=== PATIENT | female | born 1960 | race Caucasian/White ===

== ENCOUNTER 2023-09-09 16:47 | Observation (INO) | payer OTHER, SELFPAY ==
[2023-09-09] VITALS (11 sets, daily range): BP systolic 134–205; BP diastolic 79–101; BMI 30.8; BMI 29.6
--- NOTE | 2023-09-09 12:12 | EDRN ---
Ronald SCOTT in room w/ pt.
[2023-09-09 12:21] LABS: % Basophils 0.6 % (0-2); % Eosinophils 1.3 % (0-6); % Immature Granulocytes 0.2 % (0-0.5); % Lymphocytes 15.7 % (20.5-51.1); % Monocytes 4.9 % (1.7-9.3); % Neutrophils 77.3 % (42.2-75.2); Absolute Eosinophils 0.1 10^3/uL (0-0.7); Absolute Monocytes 0.3 10^3/uL (0.1-0.6); Absolute Neutrophils 4.9 10^3/uL (1.4-6.5); Hematocrit 40.1 % (37.0-47.0); Hemoglobin 13.5 g/dL (12.0-16.0); Mean Corp Hgb Conc. 33.7 g/dL (33.0-37.0); Mean Corpuscular Hgb 29.8 pg (27.0-31.0); Mean Corpuscular Volume 88.5 fL (81.0-99.0); Mean Platelet Volume 9.1 fL (7.4-10.4); Nucleated Red Blood Cells % 0 %; Platelet Count 231 10^3/uL (130-400); Red Blood Cell Count 4.53 10^6/uL (4.20-5.40); Red Cell Dist. Width 12.5 % (11.5-14.5); White Blood Cell Count 6.4 10^3/uL (4.8-10.8)
[2023-09-09] MEDS: MORPHINE SULFATE 2 MG IV ×2 (12:22→14:24)
--- NOTE | 2023-09-09 12:35 | ED.GENMED ---
History of Present Illness
<Rogers Whittington Jr., PA-C - Last Filed: 09/10/23 09:27>
General
Chief Complaint: Chest Pain
Source: patient
Exam Limitations: none
Time Seen by Provider: 09/09/23 12:03
Nursing documentation reviewed up to this point in time: agreed with
Travel History
Have you had any contact with someone who has COVID-19?: No
Do you have any symptoms of coronavirus? Fever > 100 degrees, chills, cough, shortness of breath, sore throat, loss of taste or smell, muscle aches, or headache?: No
History of Present Illness
History of Present Illness:
62-year-old female with past ministry of hypertension hyperlipidemia GERD presenting to the emergency department today with concerns of midsternal chest pain rating directly to her back started this morning worsened throughout the day today blood
pressure very elevated at home. Took 2 aspirin without relief. Denies similar symptoms in the past. Has had some ongoing right upper quadrant pain and she believes she does gallstones but denies this specifically worsening denies ever having
symptoms like this in the past. Patient is not a smoker denies any history of blood clots recent trauma surgery immobilization or estrogen product use
Past History
<Rogers Whittington Jr., PA-C - Last Filed: 09/10/23 09:27>
Past History
ED Past Medical History: GERD, HTN and Psychiatric
Social History
Tobacco: Non-smoker
Alcohol: Occasional
Drug: None
Personal:
Living: with family
Review of Systems
<Rogers Whittington Jr., PA-C - Last Filed: 09/10/23 09:27>
Review of Systems
Allergies reviewed?: Yes
All Other Systems: ROS reviewed and negative except as documented in HPI and ROS
Phy Exam
<Rogers Whittington Jr., PA-C - Last Filed: 09/10/23 09:27>
Physical Exam
Physical Exam:
GENERAL: Alert , in no apparent distress
EYE: pupils equal and reactive
NECK: Supple, no significant adenopathy.
ENT: o/p clr, mmm.
CARDIAC: Regular rate and rhythm .
LUNGS: Clear breath sounds bilaterally, no acute respiratory distress, no wheezes/rales/rhonchi
ABDOMEN: Mild pain to the upper abdomen to palpation.
NEUROLOGICAL: Alert and oriented, no focal neuro deficits
SKIN: Warm and dry, skin intact.
MUSCULOSKELETAL: No edema, well perfused.
PSYCH: Normal and appropriate interaction.
Scores
<Ge Phan PA-C - Last Filed: 09/09/23 16:43>
Heart Score for Chest Pain Patients
STEMI patient?: Not applicable
Course
<Rogers Whittington Jr., PA-C - Last Filed: 09/10/23 09:27>
Orders/Labs/Results
Orders:
Orders
09/09/23 11:44
EKG [Electrocardiogram (*1)] Urgent
Reason for Study: Chest Pain
EKG- Treatment ONCE
09/09/23 12:01
Cardiac Monitoring- Treatment ONCE
IV Insert/Care/Rem.- Treatment PRN
09/09/23 12:07
Complete Blood Count/With Diff Urgent
Comprehensive Metabolic Panel Urgent
Lipase Urgent
Troponin I Urgent
09/09/23 12:19
CT Chest/abd/pelvis Angio W/wo Urgent
Comment:
Reason For Exam: chest pain/abd pain radiating to the back
Morphine Sulfate 2 mg IV NOW STA
09/09/23 12:20
Morphine Sulfate 2 mg .ROUTE .STK-MED ONE
09/09/23 13:54
Morphine Sulfate 2 mg IV NOW STA
09/09/23 14:22
EKG [Electrocardiogram (*1)] Urgent
Reason for Study: Chest Pain
EKG- Treatment ONCE
09/09/23 14:33
Troponin I Urgent
09/09/23 14:35
Famotidine [Pepcid] 20 mg IV NOW STA
Ketorolac [Toradol] 15 mg IV NOW STA
09/09/23 Dinner
Clear Liquid
At Your Request: Full Participation
09/09/23 16:16
Admit Patient As Directed
Co-Sign Provider:
Level of Care: Observation services
Assign to:: Medical/Surgical
Physician / Group: Dr. Potter/General surgery
Diagnosis: Abdominal pain
Code Status As Directed
Resuscitation Status: Full Code
Acetaminophen [Tylenol] 650 mg PO Q4HPRN PRN
HYDROmorphone [Dilaudid] 1 mg IV Q4HPRN PRN
Ketorolac [Toradol] 10 mg IV Q6HPRN PRN
Ondansetron Injectable [Zofran] 4 mg IV Q6HPRN PRN
Activity As Directed
Activity Level: Out of Bed-Early Mobility
Intake/ Output As Directed
Frequency: Per unit guidelines
Vital Signs As Directed
Frequency: Per unit guidelines
09/09/23 16:17
DX Deep Vein Thrombosis Video Routine
09/09/23 16:21
Calcium Carbonate Chewable [Tums] 2 tablet PO Q4HPRN PRN
09/09/23 16:30
Normosol (Mult Electrolytes) [Normosol-R] 1,000 ml IV 80 mls/hr
09/09/23 18:00
Enoxaparin Sodium [Lovenox] 40 mg SC QPM
09/09/23 20:00
Famotidine [Pepcid] 20 mg PO BID
09/09/23 22:00
Cetirizine HCl [Zyrtec] 10 mg PO HS
09/10/23 04:30
Complete Blood Count/No Diff IN AM
Comprehensive Metabolic Panel IN AM
09/10/23 Breakfast
NPO
Allow oral meds: Yes
Allow clear liquids: Sips of Clears
Hida Scan [NM Hepatobiliary (hida)] IN AM
Comment:
Reason For Exam: RUQ pain
09/10/23 08:00
Hydrochlorothiazide [Oretic] 25 mg PO DAILY
09/10/23 09:00
US Abdomen Complete/Upper Routine
Comment: npo after midnight
Reason For Exam: RUQ pain, h/o cholelithiasis
Abnormal Lab Results
09/09/23
12:07
Absolute Lymphs (auto) 1.0 L 10^3/uL
(1.2-3.4)
Neutrophils % 77.3 H %
(42.2-75.2)
Lymphocytes % 15.7 L %
(20.5-51.1)
Glucose 112 H mg/dl
(70-99)
09/09/23 12:07
09/09/23 12:07
Vital Signs
Initial and Last Documented VS:
Initial Vital Signs
Temp Pulse Resp BP Pulse Ox
98.3 F 71 18 205/101 98
09/09/23 11:43 09/09/23 11:43 09/09/23 11:43 09/09/23 11:43 09/09/23 11:43
Last Documented Vital Signs
Temp Pulse Resp BP Pulse Ox
98.6 F 66 18 122/70 96
09/10/23 07:37 09/10/23 07:37 09/10/23 07:37 09/10/23 07:37 09/10/23 09:22
<Ge Phan PA-C - Last Filed: 09/09/23 16:43>
Orders/Labs/Results
Orders:
Orders
09/09/23 11:44
EKG [Electrocardiogram (*1)] Urgent
Reason for Study: Chest Pain
EKG- Treatment ONCE
09/09/23 12:01
Cardiac Monitoring- Treatment ONCE
IV Insert/Care/Rem.- Treatment PRN
09/09/23 12:07
Complete Blood Count/With Diff Urgent
Comprehensive Metabolic Panel Urgent
Lipase Urgent
Troponin I Urgent
09/09/23 12:19
CT Chest/abd/pelvis Angio W/wo Urgent
Comment:
Reason For Exam: chest pain/abd pain radiating to the back
Morphine Sulfate 2 mg IV NOW STA
09/09/23 12:20
Morphine Sulfate 2 mg .ROUTE .STK-MED ONE
09/09/23 13:54
Morphine Sulfate 2 mg IV NOW STA
09/09/23 14:22
EKG [Electrocardiogram (*1)] Urgent
Reason for Study: Chest Pain
EKG- Treatment ONCE
09/09/23 14:33
Troponin I Urgent
09/09/23 14:35
Famotidine [Pepcid] 20 mg IV NOW STA
Ketorolac [Toradol] 15 mg IV NOW STA
09/09/23 Dinner
Clear Liquid
At Your Request: Full Participation
09/09/23 16:16
Admit Patient As Directed
Co-Sign Provider:
Level of Care: Observation services
Assign to:: Medical/Surgical
Physician / Group: Dr. Potter/General surgery
Diagnosis: Abdominal pain
Code Status As Directed
Resuscitation Status: Full Code
Acetaminophen [Tylenol] 650 mg PO Q4HPRN PRN
HYDROmorphone [Dilaudid] 1 mg IV Q4HPRN PRN
Ketorolac [Toradol] 10 mg IV Q6HPRN PRN
Ondansetron Injectable [Zofran] 4 mg IV Q6HPRN PRN
Activity As Directed
Activity Level: Out of Bed-Early Mobility
Intake/ Output As Directed
Frequency: Per unit guidelines
Vital Signs As Directed
Frequency: Per unit guidelines
09/09/23 16:17
DX Deep Vein Thrombosis Video Routine
09/09/23 16:21
Calcium Carbonate Chewable [Tums] 2 tablet PO Q4HPRN PRN
09/09/23 16:30
Normosol (Mult Electrolytes) [Normosol-R] 1,000 ml IV 80 mls/hr
09/09/23 18:00
Enoxaparin Sodium [Lovenox] 40 mg SC QPM
09/09/23 20:00
Famotidine [Pepcid] 20 mg PO BID
09/09/23 22:00
Cetirizine HCl [Zyrtec] 10 mg PO HS
09/10/23 04:30
Complete Blood Count/No Diff IN AM
Comprehensive Metabolic Panel IN AM
09/10/23 Breakfast
NPO
Allow oral meds: Yes
Allow clear liquids: Sips of Clears
Hida Scan [NM Hepatobiliary (hida)] IN AM
Comment:
Reason For Exam: RUQ pain
09/10/23 08:00
Hydrochlorothiazide [Oretic] 25 mg PO DAILY
09/10/23 09:00
US Abdomen Complete/Upper Routine
Comment: npo after midnight
Reason For Exam: RUQ pain, h/o cholelithiasis
Abnormal Lab Results
09/09/23
12:07
Absolute Lymphs (auto) 1.0 L 10^3/uL
(1.2-3.4)
Neutrophils % 77.3 H %
(42.2-75.2)
Lymphocytes % 15.7 L %
(20.5-51.1)
Glucose 112 H mg/dl
(70-99)
09/09/23 12:07
09/09/23 12:07
Vital Signs
Initial and Last Documented VS:
Initial Vital Signs
Temp Pulse Resp BP Pulse Ox
98.3 F 71 18 205/101 98
09/09/23 11:43 09/09/23 11:43 09/09/23 11:43 09/09/23 11:43 09/09/23 11:43
Last Documented Vital Signs
Temp Pulse Resp BP Pulse Ox
98.6 F 66 18 122/70 96
09/10/23 07:37 09/10/23 07:37 09/10/23 07:37 09/10/23 07:37 09/10/23 09:22
<Rogers Whittington Jr., PA-C - Last Filed: 09/10/23 09:27>
MDM/Problems Addressed
MDM/Problems Addressed:
62-year-old female presenting to the emergency department today with concerns of midsternal chest pain rating to the mid back between her shoulder blades described as severe and worsening over the past few hours also has had some lightheadedness
some nausea no vomiting no significant shortness of breath no history of similar symptoms. Initial blood pressure 205/101 other vital signs are normal. Labs unremarkable. EKG nonischemic normal heart rate. Considered the patient's rating
symptoms to her shoulder blades from her mid chest and also some discomfort coming from the abdomen there was initial concern for potential dissection with significantly elevated blood pressure. CT dissection was performed without evidence of
emergent pathology troponin was negative x 2 EKG unchanged cardiac origin or vascular origin seems very unlikely at this point no evidence of pulmonary pathology as well normal lipase normal liver function test unlikely be biliary pathology or
pancreatitis. Patient was found to have a large hiatal hernia. There was concern this could be causing patient's significant symptoms. Patient with ongoing symptoms despite 2 doses of morphine and Toradol. Case discussed with general surgery who
will come see the patient here.
<Ge Phan PA-C - Last Filed: 09/09/23 16:43>
*Critical Care Note
Total Time (30-74mins, 75-104mins- exclusive of procedures): Not Applicable
<Ge Phan PA-C - Last Filed: 09/09/23 16:43>
Update Note
Update Note:
Care assumed from Ed HECTOR Whittington at shift change 1600. Awaiting gen surg consultation
Surgery saw pt and will admit for further workup of possible cholecystitis
ED Attending Note
<Rogers Whittington Jr., PA-C - Last Filed: 09/10/23 09:27>
-
Portions of this chart may have been created with voice recognition software.� Occasional wrong word or��sound alike� substitutions may have occurred due to the inherent limitations of voice recognition software.
Discharge Plan
Departure
Patient Disposition: Admit
Date of Disposition: 09/09/23
Time of Disposition: 16:41
Presentation/result/management discussed w/ accepting MD/DO: General Surgery
Discharge Problem:
Right upper quadrant abdominal pain
Interventions
Interventions:
*Risk Screen - Suicide Last Done: 09/09/23 11:43
*General Assessment Last Done: 09/09/23 11:43
*Neglect/Abuse Screening Last Done: 09/09/23 11:43
ED- Fall Risk Assessment Last Done: 09/09/23 11:58
*ED COVID-19 Vaccine History Last Done: 09/09/23 18:47
*Nursing Disposition Last Done: 09/09/23 17:18
ED- Cardiac Assessment Last Done: 09/09/23 11:58
ED- Neurological Assessment Last Done: 09/09/23 11:58
ED- Pulmonary Assessment Last Done: 09/09/23 11:58
Discharge Date and Time
Discharge Date/Time: 09/09/23 17:18
[2023-09-09 12:36] LABS: ALT (SGPT) 13 U/L (0-35); AST (SGOT) 22 U/L (14-36); Albumin 4.1 g/dl (3.5-5.0); Alkaline Phosphatase 78 U/L (38-126); Blood Urea Nitrogen 15 mg/dl (7-17); Calcium 9.7 mg/dl (8.4-10.2); Carbon Dioxide 30 mmol/L (22-30); Chloride 101 mmol/L (98-107); Estimated Creatinine Clearance 65 ml/min; Glucose 112 mg/dl (70-99); Sodium 137 mmol/L (135-145); Total Bilirubin 0.3 mg/dl (0.2-1.3); Total Protein 6.8 g/dl (6.3-8.2); eGFR > 60.00
[2023-09-09 12:48] LABS: Troponin I < 0.012 ng/ml
[2023-09-09 13:06] LABS: Lipase 223 U/L (23-300)
--- NOTE | 2023-09-09 14:26 | EDRN ---
Ronald SCOTT in room w /pt at this time.
[2023-09-09] MEDS: TORADOL 15 MG IV (14:49)
[2023-09-09] MEDS: PEPCID 20 MG IV (14:49)
[2023-09-09 15:37] LABS: Troponin I < 0.012 ng/ml
--- NOTE | 2023-09-09 16:03 | EDRN ---
Dr. Pastor in to see pt for general surgery and informed this RN that pt will be admitted to hospital.
--- NOTE | 2023-09-09 16:04 | HPS.HSE ---
Addendum entered and electronically signed by Aditya Potter MD 09/09/23 17:39:
I saw and examined the patient independently.
The Hog Handler's note was reviewed and I agree with the note, assessment and plan except where noted below.
Comment: This is a 62-year-old female who presents today with chest pain and nausea in the setting of a known hiatal hernia and gallstones. Her pain is not particularly postprandial and is different from her typical GERD. She underwent 2 EKGs as
well as troponin levels which were all normal ruling out ACS. She underwent CT chest abdomen pelvis which ruled out dissection however it did note an enlarging hiatal hernia and on the my review a slightly distended gallbladder. The patient denies
Fever, Chest Pain, Shortness Of Breath, Vomiting, changes in urinary and bowel habits, dysphagia, unintentional weight loss, jaundice, icterus, acolic stools.
Last upper endoscopy: Never
On exam she is acutely tender to palpation in the right upper quadrant and her main presenting complaints seems more consistent with gallbladder etiology than her hiatal hernia.
Admit to general surgery for workup of chest and abdominal pain.
N.p.o., IV fluids
Hold on antibiotics for now.
Ultrasound of the right upper quadrant. If positive will plan for laparoscopic cholecystectomy tomorrow. If negative will discuss further workup however if her pain is resolved will likely be able to advance diet and discharge home with outpatient
workup of her hiatal hernia.
Original Note:
Family Physician
-
Family Physician: NOT KNOW UNKNOWN - PT DOES
Chief Complaint
-
Chest and RUQ pain
History of Present Illness
Ms Lizama is a 62 yo female with history of cholelithiasis, D&C, dx lap for endometriosis and HTN who presents for RUQ pain and chest discomfort which she noted this morning upon awakening. She notes indigestion frequently which she described as
burning in her esophagus with heavy meals and spicy foods and often has a nagging sensation in her RUQ. She has been eating a low fat diet to manage these symptoms as well as taking Jarett's as needed. This morning, she took aspirin for pain relief,
but with no relief causing her to present for evaluation. She denies nausea or vomiting. She denies fevers or chills. She denies diarrhea or constipation. On exam, she is tender to the RUQ with guarding.
Medical History
Past Medical History
Past Medical History: Reports HTN
Past Surgical History: Reports Gynocological (D&C, Dx lap for endometriosis)
Social History
Tobacco: Non-smoker
Alcohol: Occasional (glass of wine every 1-2 months)
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
Family History
Family History: Not pertinent
Allergies / Home Medications
Allergies reflects when Allergies were last updated in [facility].
Home Medications with original date entered in [facility]
Allergy/Medication List:
Patient Allergies
Allergy/AdvReac Type Severity Reaction Status Date / Time
Penicillins Allergy Rash Verified 09/09/23 11:43
sulfamethoxazole Allergy Rash Verified 09/09/23 11:43
[From Bactrim]
trimethoprim [From Bactrim] Allergy Rash Verified 09/09/23 11:43
�Medication �Instructions �Recorded �Confirmed �Type
acetaminophen 500 mg tablet 1,000 mg PO BIDPRN PRN mild pain 09/09/23 09/09/23 History
(Tylenol Extra Strength)
aspirin 325 mg tablet 650 mg PO DAILYPRN PRN heart issue 09/09/23 09/09/23 History
cetirizine 10 mg tablet (Zyrtec) 10 mg PO HS 09/09/23 09/09/23 History
hydrochlorothiazide 25 mg tablet 25 mg PO DAILY 09/09/23 09/09/23 History
Review of Systems
-
History Source: Patient
A 12 point ROS was completed and negative except as noted: Yes
Physical Exam
Vital Signs
Vital Signs
Temp Pulse Resp BP Pulse Ox
98.3 F 70 16 175/82 97
09/09/23 11:43 09/09/23 15:15 09/09/23 15:15 09/09/23 14:54 09/09/23 15:15
Physical Exam
General: Well Developed and Well Nourished
HEENT: NormoCephalic and Moist mucous membranes
GI: Soft and Tender (RUQ)
Skin: Warm and Dry
Neuro: Awake, Alert and AO x 3
Psych: Calm
Laboratory Results
-
09/09/23 12:07
09/09/23 12:07
Laboratory Results
Total Bilirubin 0.3 mg/dl (0.2-1.3) 09/09/23 12:07
AST 22 U/L (14-36) 09/09/23 12:07
ALT 13 U/L (0-35) 09/09/23 12:07
Alkaline Phosphatase 78 U/L (38-126) 09/09/23 12:07
Troponin I < 0.012 ng/ml 09/09/23 14:33
Lipase 223 U/L (23-300) 09/09/23 12:07
Data Reviewed
-
CT Scan: Image Personally Visualized and interpreted, Report Reviewed by me, Discussed with Physician and Discussed with Patient
Lab Data: Labs Reviewed by me, Discussed with Physician and Discussed with Patient
Old Records: Reviewed
Impression/Plan
-
IMPRESSION:
62 yo female with history of D&C, dx lap for endometriosis and HTN who presents for RUQ pain and chest discomfort which she noted this morning upon awakening with history of recurrent RUQ discomfort and known cholelithiasis. She has RUQ tenderness
with guarding on exam. Chest discomfort relieved with analgesics but RUQ pain persists. Denies n/v or fever/chills. Cardiac work up in the ED negative. CT imaging reviewed with hiatal hernia present without gastric volvulus. The gallbladder does
appear slightly distended but there is no sign of surrounding inflammation/acute cholecystitis. Labs are unremarkable. Suspect possible chronic cholecystitis with hiatal hernia contributing to her symptoms. Given continued tenderness on exam, will
place in observation for continued testing.
PLAN:
ABD US this evening
HIDA in AM
Clears tonight and NPO after MN for testing/?OR
Multimodal analgesics/antiemetics
Continue home meds
Labs in AM
Surgical consideration for lap fortunato either this presentation or scheduled as an outpatient pending testing and patient course
[2023-09-09] MEDS: DILAUDID 1 MG IV ×2 (16:58→22:28)
[2023-09-09] MEDS: ZOFRAN 4 MG IV (17:52)
[2023-09-09] MEDS: LOVENOX 40 MG SC (17:55)
[2023-09-09] MEDS: NORMOSOL-R 1000 IV (17:57)
[2023-09-09] MEDS: PEPCID 20 MG PO (20:30)
[2023-09-09] MEDS: ZYRTEC 10 MG PO (20:31)
[2023-09-09] MEDS: TORADOL 10 MG IV (20:32)
[2023-09-09] MEDS: TUMS 2 TABLET PO (22:28)
--- NOTE | 2023-09-09 23:55 | PTCARENOTE ---
pt washed up, 1st set of chg wipes completed. pt npo at midnight for US and OR in am.
[2023-09-10 05:18] LABS: Hematocrit 36.2 % (37.0-47.0); Hemoglobin 12.2 g/dL (12.0-16.0); Mean Corp Hgb Conc. 33.7 g/dL (33.0-37.0); Mean Corpuscular Hgb 29.6 pg (27.0-31.0); Mean Corpuscular Volume 87.9 fL (81.0-99.0); Mean Platelet Volume 9.5 fL (7.4-10.4); Platelet Count 216 10^3/uL (130-400); Red Blood Cell Count 4.12 10^6/uL (4.20-5.40); Red Cell Dist. Width 12.7 % (11.5-14.5); White Blood Cell Count 7.9 10^3/uL (4.8-10.8)
[2023-09-10] MEDS: NORMOSOL-R 1000 IV ×2 (05:29→17:00)
[2023-09-10] MEDS: ZOFRAN 4 MG IV ×2 (05:33→11:44)
[2023-09-10] MEDS: TORADOL 10 MG IV ×2 (05:33→11:44)
[2023-09-10 05:49] LABS: ALT (SGPT) 13 U/L (0-35); AST (SGOT) 20 U/L (14-36); Albumin 3.7 g/dl (3.5-5.0); Alkaline Phosphatase 69 U/L (38-126); Blood Urea Nitrogen 13 mg/dl (7-17); Calcium 9.3 mg/dl (8.4-10.2); Carbon Dioxide 32 mmol/L (22-30); Chloride 99 mmol/L (98-107); Estimated Creatinine Clearance 107 ml/min; Glucose 113 mg/dl (70-99); Potassium 4.1 mmol/L (3.5-5.1); Sodium 133 mmol/L (135-145); Total Bilirubin 0.5 mg/dl (0.2-1.3); Total Protein 6.1 g/dl (6.3-8.2); eGFR > 60.00
[2023-09-10] MEDS: PEPCID 20 MG PO (07:25)
[2023-09-10] MEDS: ORETIC 25 MG PO (07:25)
[2023-09-10 07:37] VITALS: BP 122/70
--- NOTE | 2023-09-10 09:54 | W.PN.GS2 ---
Addendum entered and electronically signed by Aditya Potter MD 09/10/23 11:48:
Hida negative. Will advance diet and plan to discharge later today if she is tolerating food with plan for outpatient EGD and hiatal hernia workup.
Original Note:
Today's Communication / Plan
-
Ultrasound, possible HIDA scan
Assessment / Plan
-
This is a 62-year-old female with a history of gallstones who presents with chest pain as well as a right upper quadrant pain that is not postprandial. ACS ruled out. CT scan notable for the moderate hiatal hernia as well as a slightly distended
gallbladder. Tender to palpation in the right upper quadrant.
Ultrasound this morning if positive stones and concerning for cholecystitis will plan for or today, if positive stones but no other stigmata of cholecystitis will obtain a HIDA scan. If all of this is negative then we will plan to feed and
discharge home if she is tolerating her diet with plan for outpatient EGD and workup of her hiatal hernia.
All questions answered, patient agreeable to plan.
Time Spent
Total Time Spent with Patient (in minutes): 20
Subjective Data
-
Date of Service: September 10, 2023
Interval Events:
No acute events overnight. Slept well. Pain Controlled. Denies Nausea/Vomiting after tolerating clear liquids last night. She states that her chest pain is more or less gone but is continue to have right upper quadrant and epigastric pain.
Ultrasound was not performed last night.
Objective Data
-
Intake and Output
09/09/23 09/10/23 09/11/23
06:59 06:59 06:59
Intake Total 1919
Balance 1919
Intake:
Oral fluids 880 / 880
IV fluids (Total) 1040 / 1040
Other:
Number of approximated MODERATE 1
amounts of urine
Number of approximated LARGE 3
amounts of urine
Vital Signs
Temp Pulse Resp BP Pulse Ox
98.6 F 66 18 122/70 96
09/10/23 07:37 09/10/23 07:37 09/10/23 07:37 09/10/23 07:37 09/10/23 09:22
Lab Results
09/10/23 04:30
09/10/23 04:30
Calcium 9.3 mg/dl (8.4-10.2) 09/10/23 04:30
Total Bilirubin 0.5 mg/dl (0.2-1.3) 09/10/23 04:30
AST 20 U/L (14-36) 09/10/23 04:30
ALT 13 U/L (0-35) 09/10/23 04:30
Alkaline Phosphatase 69 U/L (38-126) 09/10/23 04:30
Total Protein 6.1 g/dl (6.3-8.2) L 09/10/23 04:30
Albumin 3.7 g/dl (3.5-5.0) 09/10/23 04:30
Physical Exam
-
GENERAL/NEURO: Awake, Alert, no distress
CHEST: Unlabored breathing on RA
ABDOMEN: Soft, nondistended,'s atmospheric drier tender to palpation in the right upper quadrant.
[2023-09-10] MEDS: TYLENOL 650 MG PO ×2 (10:17→14:21)
[2023-09-10 15:21] VITALS: BP 129/69
[2023-09-10] MEDS: LOVENOX 40 MG SC (17:01)
[2023-09-10] MEDS: DILAUDID 1 MG IV ×2 (18:12→22:27)
[2023-09-10] MEDS: PROTONIX 40 MG PO (20:50)
[2023-09-10] MEDS: ZYRTEC 10 MG PO (22:27)
[2023-09-10 23:09] VITALS: BP 145/82
[2023-09-11 07:15] VITALS: BP 144/81
[2023-09-11] MEDS: ORETIC 25 MG PO (07:52)
[2023-09-11] MEDS: PROTONIX 40 MG PO (07:52)
--- NOTE | 2023-09-11 10:49 | CM ---
IA completed.
Patient admitted with abdominal pain.
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
Patient has a cane at home for a tear in her left knee.
Patient lives in a 2 story home, stays mainly on the 1st floor to help her parents.
Patient drives.
patient admitted under observation status and did not wish to sign the form. Patient upset that she was not told in they ED. She was told she was being admitted but was not told it was under observation, she stated if she had known she may not have
stayed.
Copy of form given to patient.
Patient has not had VN on the past.
Patient denies home care needs.
PCP: Dr Bermudez
Pharmacy: [facility]
Plan: home no needs.
--- NOTE | 2023-09-11 12:51 | W.PN.GS2 ---
Today's Communication / Plan
-
DC
Assessment / Plan
-
This is a 62-year-old female with a history of gallstones who presents with chest pain as well as a right upper quadrant pain that is not postprandial. ACS ruled out. CT scan notable for the moderate hiatal hernia as well as a slightly distended
gallbladder. Tender to palpation in the right upper quadrant.
HIDA negative yesterday, pt remained 2/2 new SHER which has since resolved. Plan for DC home and outpt f/u with Dr Potter
All questions answered, patient agreeable to plan.
Subjective Data
-
Date of Service: September 11, 2023
AFVSS, SHER resolved, denies n/v, gaetano diet, pain controlled, ambulating
Objective Data
-
Intake and Output
09/10/23 09/11/23 09/12/23
06:59 06:59 06:59
Intake Total 1920 / 1920 2760 / 2760
Balance 1920 / 1920 2760 / 2760
Intake:
Oral fluids 880 / 880 840 / 840
IV fluids (Total) 1040 / 1040 1920 / 1920
IV piggybacks 0 / 0
Other:
Number of approximated MODERATE 1 2
amounts of urine
Number of approximated LARGE 3
amounts of urine
Vital Signs
Temp Pulse Resp BP Pulse Ox
98.5 F 66 11 144/91 94
09/11/23 07:15 09/11/23 07:52 09/11/23 07:15 09/11/23 07:52 09/11/23 07:15
Lab Results
09/10/23 04:30
09/10/23 04:30
Calcium 9.3 mg/dl (8.4-10.2) 09/10/23 04:30
Total Bilirubin 0.5 mg/dl (0.2-1.3) 09/10/23 04:30
AST 20 U/L (14-36) 09/10/23 04:30
ALT 13 U/L (0-35) 09/10/23 04:30
Alkaline Phosphatase 69 U/L (38-126) 09/10/23 04:30
Total Protein 6.1 g/dl (6.3-8.2) L 09/10/23 04:30
Albumin 3.7 g/dl (3.5-5.0) 09/10/23 04:30
Physical Exam
-
Gen: NAD
Abd: soft, mild ttp to RUQ
--- NOTE | 2023-09-11 12:54 | W.DS.TRANS ---
Addendum entered and electronically signed by ALEXA Olivarez 09/13/23 11:34:
Dictation #[id number]
Original Note:
DC Summary - Denitrator
-
Discharge Instructions:
Discharge Diagnosis/Procedures Abdominal pain, gastritis vs enteritis
Diet Low Fat
Activity No restrictions
Driving Restrictions As prior to admission
Bathing Restrictions None
Instructions:
Stand-Alone Forms:
Changes to Home Medications: Yes
Discharge Medications:
DC Medications w/original date entered in [facility]
acetaminophen 500 mg tablet (Tylenol Extra Strength) 1,000 mg PO BIDPRN PRN mild pain 09/09/23
aspirin 325 mg tablet 650 mg PO DAILYPRN PRN heart issue 09/09/23
cetirizine 10 mg tablet (Zyrtec) 10 mg PO HS Allergies 09/09/23
hydrochlorothiazide 25 mg tablet 25 mg PO DAILY Blood Pressure 09/09/23
pantoprazole 40 mg tablet,delayed release (Protonix) 40 mg PO DAILY #14 tabs 09/10/23
Home Medication Changes
Pending Results: No
[2023-09-11 13:29] VITALS: BP 158/85
== END 2023-09-11 13:30 | disposition home or self-care (01) ==
LOC: 2 SOUTH 16:47
PROVIDERS: Physician Assistant; Registered Nurse; ADMITTING PHYSICIAN Surgery; EMERGENCY PHYSICIAN Emergency Medicine
DX: R10.11 Right upper quadrant pain (principal); R11.0 Nausea; R07.89 Other chest pain; I10 Essential (primary) hypertension; K21.9 Gastro-esophageal reflux disease without esophagitis; E78.5 Hyperlipidemia, unspecified; K57.10 Diverticulosis of small intestine without perforation or abscess without bleeding; K80.20 Calculus of gallbladder without cholecystitis without obstruction; K42.9 Umbilical hernia without obstruction or gangrene; K44.9 Diaphragmatic hernia without obstruction or gangrene; R51.9 Headache, unspecified; Z88.1 Allergy status to other antibiotic agents; Z88.2 Allergy status to sulfonamides; Z88.0 Allergy status to penicillin
CPT/HCPCS: 71275; 74174; 76700; 78226; 80053; 83690; 84484; 85025; 85027; 93005; 96374; 96375; 96376; 99285; A9537; G0378; Q9967

== ENCOUNTER → 2023-10-14 14:04 | Outpatient (REF) | payer OTHER, SELFPAY | LOC: WDC 14:04 | PROVIDERS: ATTENDING PHYSICIAN Physician Assistant | DX: Z12.31 Encounter for screening mammogram for malignant neoplasm of breast (principal) | CPT/HCPCS: 77063; 77067 ==

== ENCOUNTER → 2024-08-26 08:27 | Outpatient (REF) | payer MEDICARE, OTHER, SELFPAY | LOC: HWRAD 08:27 | PROVIDERS: ATTENDING PHYSICIAN Physician Assistant | DX: R10.11 Right upper quadrant pain (principal) | CPT/HCPCS: 76700 ==

== ENCOUNTER → 2024-10-19 13:46 | Outpatient (REF) | payer MEDICARE, OTHER, SELFPAY | LOC: WDC 13:46 | PROVIDERS: ATTENDING PHYSICIAN Physician Assistant | DX: Z12.31 Encounter for screening mammogram for malignant neoplasm of breast (principal) | CPT/HCPCS: 77063; 77067 ==